=== PATIENT | male | born 1975 | race Caucasian/White ===

== ENCOUNTER → 2016-04-12 | Outpatient (CLI) | payer BC ==
[~2016-04-12] MED LIST: CARAFATE1 GM PO; CEPHALEXIN500 M1 PO; DICLOFENAC SOD75 MG PO; KLONOPIN1 MG PO; LIBRIUM 5MG5 MG/CAP PO; METHADONE10 MG/5 M1 PO; ONDANSETRON HYDR4 M1 PO; PRILOSEC 20MG20 MG PO; ZOFRAN8 MG PO; seroquel PO
== END ==
LOC: LAB 07:52
DX: Z00.00 Encounter for general adult medical examination without abnormal findings (principal); I10 Essential (primary) hypertension; R53.83 Other fatigue; Z72.51 High risk heterosexual behavior; F19.10 Other psychoactive substance abuse, uncomplicated; F31.81 Bipolar II disorder

== ENCOUNTER → 2016-07-06 | Emergency (ER) | payer BC ==
[~2016-07-06] VITALS: Ht 177.8 cm; Wt 68.2 kg
[2016-07-06 11:13] VITALS: BP 113/64
== END ==
LOC: ED 08:46
DX: R11.2 Nausea with vomiting, unspecified (principal); T37.0X5A Adverse effect of sulfonamides, initial encounter; E86.9 Volume depletion, unspecified; L03.114 Cellulitis of left upper limb; F31.9 Bipolar disorder, unspecified
CPT/HCPCS: J2405; J7030

== ENCOUNTER 2017-06-28 19:32 | Emergency (ER) | payer BC ==
[~2017-06-28] VITALS: Ht 177.8 cm; Wt 68.2 kg
[2017-06-28] MEDS ORDERED: SEROQUEL 2525 MG/TAB PO (19:43)
[2017-06-28] MEDS ORDERED: ESKALITH C450 MG/TAB PO (19:44)
[2017-06-28 20:04] VITALS: BP 118/83
== END 2017-06-28 20:04 | disposition home or self-care (01) ==
LOC: ED 19:32
DX: T16.2XXA Foreign body in left ear, initial encounter (principal)

== ENCOUNTER → 2018-11-27 | Outpatient (CLI) | payer BC ==
[~2018-11-27] MED LIST changes: +ESKALITH C450 MG/TAB PO; +SEROQUEL 2525 MG/TAB PO
[2018-11-27 10:32] LABS: HEMATOCRIT 48.4 % (42.0-52.0); HEMOGLOBIN 16.4 g/dL (13.5-18.0); MEAN CELL VOLUME 90 fl (78-100); MEAN CORPUSCULAR HEMOGLOBIN 31 pg (27-31); MEAN CORPUSCULAR HGB CONC 34 g/dL (33-37); MEAN PLATELET VOLUME 10.4 fl (7.4-10.4); PLATELET COUNT 220 K/mm3 (130-400); RED BLOOD COUNT 5.37 M/mm3 (4.20-5.60); RED CELL DISTRIBUTION WIDTH 13.9 % (11.5-14.5); WHITE BLOOD COUNT 5.3 K/mm3 (4.8-10.8)
[2018-11-27 10:39] LABS: ALBUMIN 3.7 g/dL (3.5-5.0)
[2018-11-27 10:40] LABS: CALCIUM 8.9 mg/dL (8.3-10.5)
[2018-11-27 10:42] LABS: TOTAL PROTEIN 6.8 g/dL (6.4-8.3)
[2018-11-27 10:44] LABS: TOTAL BILIRUBIN 0.3 mg/dL (0.2-1.2)
[2018-11-27 10:49] LABS: LYMPHOCYTE 25 % (20-51); NEUTROPHILS 60 % (42-75)
[2018-11-27 10:50] LABS: MONOCYTE 12 % (3-10)
== END ==
LOC: LAB 10:17
PROVIDERS: Internal Medicine
DX: Z00.00 Encounter for general adult medical examination without abnormal findings (principal); Z12.5 Encounter for screening for malignant neoplasm of prostate; F31.12 Bipolar disorder, current episode manic without psychotic features, moderate

== ENCOUNTER → 2018-12-14 | Day surgery (SDC) | payer BC | LOC: MSO 11:40 | DX: D17.0 Benign lipomatous neoplasm of skin and subcutaneous tissue of head, face and neck (principal); L82.1 Other seborrheic keratosis; G47.33 Obstructive sleep apnea (adult) (pediatric); G47.00 Insomnia, unspecified; F32.9 Major depressive disorder, single episode, unspecified ==

== ENCOUNTER 2021-02-11 00:43 | Inpatient (IN) | payer BC ==
[2021-02-11 03:03] LABS: BASO # 0.02 K/mm3 (0.02-0.10); EOS # 0.05 K/mm3 (0.04-0.40); EOS % 0.4 % (0.0-4.0); HEMATOCRIT 50.9 % (42.0-52.0); HEMOGLOBIN 17.9 g/dL (13.5-18.0); LYMPH# 0.69 K/mm3 (1.50-4.00); MEAN CELL VOLUME 90 fl (78-100); MEAN CORPUSCULAR HEMOGLOBIN 32 pg (27-31); MEAN CORPUSCULAR HGB CONC 35 g/dL (33-37); MEAN PLATELET VOLUME 10.7 fl (7.4-10.4); MONO # 0.91 K/mm3 (0.20-0.80); NEU # 11.54 K/mm3 (1.40-6.50); PLATELET COUNT 223 K/mm3 (130-400); RED BLOOD COUNT 5.69 M/mm3 (4.20-5.60); WHITE BLOOD COUNT 13.2 K/mm3 (4.8-10.8)
[2021-02-11 03:06] LABS: ALBUMIN 3.6 g/dL (3.5-5.0); POTASSIUM 3.5 mmol/L (3.5-5.1); SODIUM 134 mmol/L (136-145)
[2021-02-11 03:07] LABS: CALCIUM 8.9 mg/dL (8.3-10.5)
[2021-02-11 03:08] LABS: GLUCOSE 87 mg/dL (75-110)
[2021-02-11 03:09] LABS: TOTAL PROTEIN 6.7 g/dL (6.4-8.3)
[2021-02-11 03:10] LABS: CARBON DIOXIDE 27 mmol/L (22-29); TOTAL BILIRUBIN 0.9 mg/dL (0.2-1.2)
[2021-02-11 03:14] LABS: AST-SGOT 28 U/L (5-34)
[2021-02-11 03:15] LABS: ALT/SGPT 32 U/L (0-55)
[2021-02-11 04:36] LABS: URINE APPEARANCE CLEAR; URINE COLOR YELLOW
[2021-02-11 04:36] LABS: LIPASE > 2400 U/L (8-78)
[2021-02-11 04:44] LABS: PH-URINE 5.5 (5.0 - 8.0); URINE PROTEIN(semi-quant) TRACE (NEGATIVE)
[2021-02-11 04:45] LABS: URINE BILIRUBIN NEGATIVE (NEGATIVE); URINE BLOOD 50 ery/uL (NEGATIVE); URINE GLUCOSE NEGATIVE (NEGATIVE); URINE KETONE NEGATIVE (NEGATIVE); URINE LEUKOCYTE ESTERASE TRACE (NEGATIVE); URINE NITRATE NEGATIVE (NEGATIVE); URINE UROBILINOGEN NORMAL (NORMAL)
[2021-02-11 09:50] VITALS: BP 145/96
[2021-02-11 13:50] VITALS: BP 142/96
[2021-02-11 17:22] VITALS: BP 135/85
[2021-02-11 21:50] VITALS: BP 161/90
[2021-02-12 01:35] VITALS: BP 144/89
[2021-02-12 06:13] VITALS: BP 176/92
[2021-02-12 09:36] VITALS: BP 170/92
[2021-02-12 13:44] VITALS: BP 166/86
[2021-02-12 17:59] VITALS: BP 158/68
[2021-02-12 22:02] VITALS: BP 136/82
[2021-02-13 01:46] VITALS: BP 135/80
[2021-02-13 06:19] VITALS: BP 145/85
[2021-02-13 07:01] LABS: HEMATOCRIT 42.7 % (42.0-52.0); HEMOGLOBIN 14.6 g/dL (13.5-18.0); MEAN CELL VOLUME 92 fl (78-100); MEAN CORPUSCULAR HEMOGLOBIN 32 pg (27-31); MEAN CORPUSCULAR HGB CONC 34 g/dL (33-37); MEAN PLATELET VOLUME 10.6 fl (7.4-10.4); PLATELET COUNT 152 K/mm3 (130-400); RED BLOOD COUNT 4.62 M/mm3 (4.20-5.60); RED CELL DISTRIBUTION WIDTH 13.1 % (11.5-14.5); WHITE BLOOD COUNT 11.5 K/mm3 (4.8-10.8)
[2021-02-13 07:05] LABS: BAND 2 % (0-10); LYMPHOCYTE 5 % (20-51); MONOCYTE 9 % (3-10); NEUTROPHILS 83 % (42-75)
[2021-02-13 07:08] LABS: POTASSIUM 4.2 mmol/L (3.5-5.1)
[2021-02-13 07:09] LABS: CALCIUM 8.6 mg/dL (8.3-10.5)
[2021-02-13 07:11] LABS: TOTAL PROTEIN 5.7 g/dL (6.4-8.3)
[2021-02-13] MEDS ORDERED: AUGMENTIN 875-1 EAC1 PO (09:36)
[2021-02-13 10:10] VITALS: BP 145/88
[2021-07-15] MEDS ORDERED: LOSARTAN POTASS50 M1 PO (13:40)
== END 2021-02-13 10:40 | disposition home or self-care (01) | DRG 439 ==
LOC: ED 00:43 → MED/SURG 06:12
PROVIDERS: Family Medicine; ADMIT Family Medicine
DX: K85.90 Acute pancreatitis without necrosis or infection, unspecified (principal); E87.1 Hypo-osmolality and hyponatremia; I10 Essential (primary) hypertension; D72.829 Elevated white blood cell count, unspecified; F31.9 Bipolar disorder, unspecified; F41.9 Anxiety disorder, unspecified; F17.290 Nicotine dependence, other tobacco product, uncomplicated; Z20.822 Contact with and (suspected) exposure to COVID-19; Z79.891 Long term (current) use of opiate analgesic
CPT/HCPCS: C9113; J1650; J1885; J2543; J3480; J7030; Q9967

== ENCOUNTER → 2021-05-22 | Outpatient (CLI) | payer BC ==
[~2021-05-22] MED LIST changes: +AUGMENTIN 875-1 EAC1 PO
[2021-05-22 11:21] LABS: ALBUMIN 4.1 g/dL (3.5-5.0); POTASSIUM 3.9 mmol/L (3.5-5.1)
[2021-05-22 11:22] LABS: CALCIUM 9.2 mg/dL (8.3-10.5)
[2021-05-22 11:23] LABS: TOTAL PROTEIN 6.5 g/dL (6.4-8.3)
[2021-05-22 11:25] LABS: TOTAL BILIRUBIN 0.4 mg/dL (0.2-1.2)
[2021-05-22 11:31] LABS: BASO # 0.04 K/mm3 (0.02-0.10); EOS # 0.23 K/mm3 (0.04-0.40); EOS % 3.1 % (0.0-4.0); HEMATOCRIT 46.4 % (42.0-52.0); HEMOGLOBIN 15.5 g/dL (13.5-18.0); LYMPH# 1.57 K/mm3 (1.50-4.00); MEAN CELL VOLUME 90 fl (78-100); MEAN CORPUSCULAR HEMOGLOBIN 30 pg (27-31); MEAN CORPUSCULAR HGB CONC 33 g/dL (33-37); MEAN PLATELET VOLUME 11.2 fl (7.4-10.4); MONO # 0.49 K/mm3 (0.20-0.80); NEU # 5.06 K/mm3 (1.40-6.50); PLATELET COUNT 216 K/mm3 (130-400); RED BLOOD COUNT 5.18 M/mm3 (4.20-5.60); RED CELL DISTRIBUTION WIDTH 13.9 % (11.5-14.5); WHITE BLOOD COUNT 7.4 K/mm3 (4.8-10.8)
== END ==
LOC: LAB 09:49
PROVIDERS: Internal Medicine
DX: Z12.5 Encounter for screening for malignant neoplasm of prostate (principal); K85.90 Acute pancreatitis without necrosis or infection, unspecified; K90.9 Intestinal malabsorption, unspecified; I10 Essential (primary) hypertension; H66.91 Otitis media, unspecified, right ear

== ENCOUNTER → 2023-11-07 | Outpatient (CLI) | payer BC ==
[~2023-11-07] MED LIST changes: +LOSARTAN POTASS50 M1 PO
[2023-11-07 11:36] LABS: BASO # 0.03 K/mm3 (0.02-0.10); EOS # 0.25 K/mm3 (0.04-0.40); EOS % 3.9 % (0.0-4.0); HEMATOCRIT 42.1 % (42.0-52.0); HEMOGLOBIN 14.9 g/dL (13.5-18.0); LYMPH# 1.27 K/mm3 (1.50-4.00); MEAN CELL VOLUME 90 fl (78-100); MEAN CORPUSCULAR HEMOGLOBIN 32 pg (27-31); MEAN CORPUSCULAR HGB CONC 35 g/dL (33-37); MONO # 0.48 K/mm3 (0.20-0.80); PLATELET COUNT 199 K/mm3 (130-400); RED BLOOD COUNT 4.66 M/mm3 (4.20-5.60); RED CELL DISTRIBUTION WIDTH 12.1 % (11.5-14.5); WHITE BLOOD COUNT 6.4 K/mm3 (4.8-10.8)
[2023-11-07 11:49] LABS: ALBUMIN 4.1 g/dL (3.5-5.0)
[2023-11-07 11:51] LABS: TOTAL PROTEIN 6.3 g/dL (6.4-8.3)
[2023-11-07 11:53] LABS: TOTAL BILIRUBIN 0.3 mg/dL (0.2-1.2)
[2023-11-07 11:58] LABS: MAGNESIUM 1.86 mg/dL (1.60-2.60)
[2023-11-07 23:58] LABS: FOLATE (FOLIC ACID) 5.8 ng/mL (2.0-20.0)
[2023-11-12 06:38] LABS: VITAMIN B1 145.2 nmol/L (())
== END ==
LOC: LAB 11:14
PROVIDERS: Internal Medicine
DX: Z12.5 Encounter for screening for malignant neoplasm of prostate (principal); K90.9 Intestinal malabsorption, unspecified; I10 Essential (primary) hypertension; E78.2 Mixed hyperlipidemia